=== PATIENT | female | born 2000 | race Caucasian/White ===

== ENCOUNTER 2021-01-16 09:00 | Emergency (ER) | payer BC, OTHER ==
[~2021-01-16] VITALS: Ht 165.1 cm; Wt 80.7 kg
[2021-01-16 09:49] LABS: Urine Bacteria FEW /hpf (None Seen); Urine Blood 3+ /uL (Negative); Urine Mucus FEW (None Seen); Urine Specific Gravity 1.019 (1.001-1.035); Urine WBC 337 /hpf (0 - 5)
[2021-01-16] MEDS ORDERED: PHENAZOPYRIDINE HCL 100 MG TAB PO ONE (10:15)
[2021-01-16] MEDS ORDERED: cefTRIAXone SOD 1,000 MG VL IM ONE (10:15)
[2021-01-16 11:11] VITALS: BP 108/87
== END 2021-01-16 11:19 | disposition home or self-care (01) ==
LOC: ER 09:00
DX: N39.0 Urinary tract infection, site not specified (principal)
CPT/HCPCS: 81001; 81025; 96372; 99283; J0696

== ENCOUNTER 2021-05-17 06:34 | Emergency (ER) | payer BC ==
[~2021-05-17] VITALS: Ht 165.1 cm; Wt 81.6 kg
[2021-05-17 07:32] VITALS: BP 129/73
[2021-05-17] MEDS ORDERED: methylPREDNISolone SOD SUCC 125 MG/2 ML VL IM ONE (07:45)
[2021-05-17] MEDS ORDERED: EPINEPHrine HCL 1 MG/1 ML AMP SC ONE (07:45)
== END 2021-05-17 08:17 | disposition home or self-care (01) ==
LOC: ER 06:34
DX: T78.3XXA Angioneurotic edema, initial encounter (principal)
CPT/HCPCS: 96372; 99284; J0171; J2930